=== PATIENT | male | born 1965 | race Caucasian/White ===

== ENCOUNTER 2016-07-19 16:51 | Emergency (ER) | payer OTHER ==
[2016-07-19 16:57] VITALS: TEMP 97.5
--- NOTE | 2016-07-19 17:07 | CPEKG ---
Heart Rate: 65 RR Interval: 923 P-R Interval: 168 QRSD Interval: 82 QT Interval: 416 QTC Interval: 433 P [place]: 52 QRS [place]: 47 T Wave [place]: 4 EKG Severity - NORMAL ECG - EKG Impression: SINUS RHYTHM Electronically Signed By: Sabi Bruner 19-Jul-2016 17:54:10
--- NOTE | 2016-07-19 17:15 | EDPHY ---
H & P Stated Complaint: CP Time Seen by Provider: 07/19/16 17:02 HPI/ROS: CHIEF COMPLAINT: Chest pain HISTORY OF PRESENT ILLNESS: This is a 50-year-old male who underwent stenting of the LAD on June 28, [address] Alexey Haile. He is on Effient and aspirin. Prior to his cardiac catheterization he had been found to have a high calcium score, hyperlipidemia, low HDL, and an abnormal ETT. He was asymptomatic. About 530 this morning he awoke with mild substernal chest pain that has persisted throughout the day. It has been constant with waxing and waning. He took 2 Tylenol this morning ended Tums. He has taken today's aspirin. He spoke with his robot programmer, Dr Khanna, and was advised to come to the emergency department for further evaluation. Dr. Khanna saw him in the office yesterday. He denies cough or shortness of breath. He does not have calf pain or swelling. REVIEW OF SYSTEMS: A ten point review of systems was performed and is negative with the exception of the items mentioned in the HPI. 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 - Physical Exam Exam: General Appearance: Alert. Vital signs reviewed. Blood pressure 166/100. Eyes: Pupils equal and round, no conjunctival injection, no discharge. Anicteric. ENT, Mouth: Mucous membranes are moist, no oropharyngeal erythema or edema. Neck: No lymphadenopathy, supple. No JVD. Respiratory: Lungs are clear to auscultation; no wheezes, rales, or rhonchi. Cardiovascular: Regular rate and rhythm; no murmur, rub, or gallop. Gastrointestinal: Abdomen is soft and nontender, no masses or organomegaly, bowel sounds normal. Skin: Warm and dry, no rashes on exposed skin, normal color. Back: Nontender to palpation over the thoracolumbar spine. Extremities: No lower extremity edema, no calf tenderness or swelling. Neurological: Alert and oriented. Moving all four extremities easily and equally. Psychiatric: Normal affect. Constitutional: Initial Vital Signs Temperature (C) 36.4 C 07/19/16 16:55 Heart Rate 77 07/19/16 16:55 Respiratory Rate 14 07/19/16 16:55 Blood Pressure 140/96 H 07/19/16 16:55 O2 Sat (%) 97 07/19/16 16:55 O2 Delivery Mode Room Air Allergies/Adverse Reactions: No Allergies [NKDA] Allergy (Verified 06/28/16 13:18) Home Medications: Medication Instructions Recorded Albuterol [Proventil Inhaler HFA 2 puffs IH DAILY PRN 06/28/16 (*)] Budesonide/Formoterol 160/4.5 2 puffs IH BID 06/28/16 [Symbicort 160-4.5 Mcg Inh (*)] Cholecalciferol Vit D3 [Vitamin D3 1,000 units PO DAILY 06/28/16 (*)] Herbals/Supplements -Info Only 1 ea PO DAILY 06/28/16 Montelukast Sodium [Singulair 10 10 mg PO DAILY@1800 06/28/16 mg (*)] Multivitamins [Multivitamin (*)] 1 each PO DAILY 06/28/16 [place]-3 Fatty Acids [Fish Oil 1000 1,000 mg PO DAILY 06/28/16 mg (*)] Rosuvastatin Calcium [Crestor 20mg 10 mg PO DAILY 06/28/16 (*)] Acetaminophen [Tylenol 325mg (*)] 650 mg PO QID PRN #0 tab 06/29/16 Aspirin EC [Aspirin EC 325 mg (*)] 325 mg PO DAILY #0 tab 06/29/16 Nitroglycerin [Nitrostat 0.4 mg 0.4 mg SL ONCE PRN #0 btl 06/29/16 (*)] Prasugrel HCl [Effient 10mg (*)] 10 mg PO DAILY #0 tab 06/29/16 Medical Decision Making - Diagnostics EKG Interpretation: 12 lead EKG is interpreted in Trace master View by emergency department physician. It shows sinus rhythm with a rate of 65. No acute ischemic changes. Imaging: Two-view chest x-ray reviewed by me in PACs. ED Course/Re-evaluation: Mild substernal chest pain in a 50-year-old male who underwent stenting of the LAD just over 2 weeks ago. He is taking Effient and aspirin. He has taken aspirin today. He was given Pepcid orally in the emergency department. Chest x-ray, EKG, CBC, chemistries, troponin are all normal. Given that he has had this pain for over 12 hours it seems unlikely that it would be cardiac in etiology with a normal troponin. I have spoken with Dr. Hu Khanna who is comfortable with the patient returning home. He would like to talk with the patient in the morning and I have advised Mr. Mckeon to call the office in the morning. We reviewed the danger signs that should prompt him to be re- evaluated. Patient is noted to be hypertensive with a blood pressure of 166/100. He has had intermittent hypertension recently. He is checking his blood pressures at home. He will follow up with his primary care doctor and/or Dr. Khanna. Differential Diagnosis: Chest pain including but not limited to GERD, myocardial ischemia, pulmonary embolus, chest wall pain, pleural inflammation and pulmonary infectious causes. - Data Points Laboratory Results: Laboratory Results 07/19/16 17:07 07/19/16 17:07 07/19/16 17:07 WBC 5.20 10^3/uL (3.80-9.50) RBC 5.01 10^6/uL (4.40-6.38) Hgb 15.4 g/dL (13.7-17.5) Hct 43.6 % (40.0-51.0) MCV 87.0 fL (81.5-99.8) MCH 30.7 pg (27.9-34.1) MCHC 35.3 g/dL (32.4-36.7) RDW 12.8 % (11.5-15.2) Plt Count 196 10^3/uL (150-400) MPV 9.4 fL (8.7-11.7) Neut % (Auto) 52.4 % (39.3-74.2) Lymph % (Auto) 31.3 % (15.0-45.0) [place] % (Auto) 10.0 % (4.5-13.0) Eos % (Auto) 4.8 % (0.6-7.6) Baso % (Auto) 1.3 % (0.3-1.7) Nucleat RBC Rel Count 0.0 % (0.0-0.2) Absolute Neuts (auto) 2.72 10^3/uL (1.70-6.50) Absolute Lymphs (auto) 1.63 10^3/uL (1.00-3.00) Absolute Monos (auto) 0.52 10^3/uL (0.30-0.80) Absolute Eos (auto) 0.25 10^3/uL (0.03-0.40) Absolute Basos (auto) 0.07 10^3/uL (0.02-0.10) Absolute Nucleated RBC 0.00 10^3/uL (0-0.01) Immature Gran % 0.2 % (0.0-1.1) Immature Gran # 0.01 10^3/uL (0.00-0.10) Sodium 144 mEq/L (134-144) Potassium 3.8 mEq/L (3.5-5.2) Chloride 104 mEq/L (97-110) Carbon Dioxide 25 mEq/l (22-31) Anion Gap 15 mEq/L (8-16) BUN 16 mg/dL (7-23) Creatinine 1.1 mg/dL (0.7-1.3) Estimated GFR > 60 Glucose 95 mg/dL (70-100) Calcium 9.3 mg/dL (8.5-10.4) Troponin I < 0.012 ng/mL (0-0.034) Departure - Departure Disposition: Home, Routine, Self-Care Clinical Impression: Chest pain Condition: Good Instructions: Chest Pain (ED) Additional Instructions: Continue your current medications. Call Dr. Khanna's office 1st thing tomorrow morning to let him know how you are doing. If anything changes for the worse-- severe persistent chest pain, chest pain that radiates, trouble breathing, feeling lightheaded or dizzy--please return for another evaluation. Referrals: [place],. [Primary Care Provider] - As per Instructions Hu Khanna MD [Medical Doctor] - As per Instructions
[2016-07-19 17:17] LABS: % IMMATURE GRANULYOCYTES 0.2 % (0.0-1.1); ABSOLUTE IMMATURE GRANULOCYTES 0.01 10^3/uL (0.00-0.10); ADD DIFF? NO; ADD MORPH? NO; ADD SCAN? NO; ATYPICAL LYMPHOCYTE FLAG 10 (0-99); FRAGMENT RBC FLAG 0 (0-99); HEMATOCRIT 43.6 % (40.0-51.0); HEMOGLOBIN 15.4 g/dL (13.7-17.5); LEFT SHIFT FLG 0 (0-99); LIPEMIA HEMOLYSIS FLAG 90 (0-99); MEAN CELL HEMOGLOBIN 30.7 pg (27.9-34.1); MEAN CELL HEMOGLOBIN CONCENTR. 35.3 g/dL (32.4-36.7); MEAN PLATELET VOLUME 9.4 fL (8.7-11.7); PLATELET CLUMPS FLAG 10 (0-99); PLATELET COUNT 196 10^3/uL (150-400); RED BLOOD CELL COUNT 5.01 10^6/uL (4.40-6.38); RED CELL DISTRIBUTION WIDTH 12.8 % (11.5-15.2)
[2016-07-19 17:32] LABS: ANION GAP 15 mEq/L (8-16); CALCIUM 9.3 mg/dL (8.5-10.4); CARBON DIOXIDE 25 mEq/l (22-31); CHLORIDE 104 mEq/L (97-110); CREATININE 1.1 mg/dL (0.7-1.3); GLOMERULAR FILTRATION RATE > 60; GLUCOSE 95 mg/dL (70-100); POTASSIUM 3.8 mEq/L (3.5-5.2); SODIUM 144 mEq/L (134-144)
[2016-07-19 17:44] LABS: TROPONIN I < 0.012 ng/mL (0-0.034)
--- NOTE | 2016-07-19 17:46 | DX ---
Chest, Two Views 1708 hours History: Chest pain. Comparison: None. Findings: Cardiac silhouette is within normal range. No pneumonia, congestive heart failure, pleura l effusion, or pneumothorax. Several bilateral mediastinal and pulmonary calcified granulomata. Impression: 1. Calcified granulomata. 2. No pneumothorax. 3. No pneumonia or pleural effusion.
[2016-07-19] MEDS ORDERED: FAMOTIDINE 20 MG TAB PO ONE (17:57)
[2016-07-19 18:26] VITALS: BP 144/100; PULSE 74; RESP 18; O2SAT 94
== END 2016-07-19 18:30 | disposition home or self-care (01) ==
DX: R07.2 Precordial pain (principal); J45.909 Unspecified asthma, uncomplicated; Z79.82 Long term (current) use of aspirin